=== PATIENT | male | born 1945 | race Caucasian/White ===

== ENCOUNTER 2017-11-29 05:08 | Emergency (ER) | payer MEDICARE ==
[~2017-11-29 05:08] MED LIST: BUPR-149 PO; CEPH-13 PO; HYDR-2966 PO; MELO-207 PO; OMEP-125 PO; OXYC-865 PO
--- NOTE | 2017-11-29 05:10 | ER Report ---
History and Physical Time Seen By MD: 05:09 HPI/ROS CHIEF COMPLAINT: Fever, body aches, cough HISTORY OF PRESENT ILLNESS: 72-year-old male presents ambulatory to the ER complaining of illness for 8 days. Patient has productive cough. He's been having fever and chills for the last 48 hours. He's had some nausea but no vomiting. He notes no diarrhea. Patient denies exposure to ill contacts. Patient relates that he was sick 1 month ago with the flu which had resolved. Patient has a history of hypertension. Patient denies dysuria, frequency or hematuria. Patient denies joint swelling or skin rashes. Patient notes some left lower sharp pleuritic chest pains. Patient notes low-grade fevers to 100.4. Over the last 2 days at home. Patient normally is seen at the [facility] in [place]. REVIEW OF SYSTEMS: Respiratory: As above Cardiovascular: As above Gastrointestinal: No vomiting, no abdominal pain. Musculoskeletal: No back pain. Allergies: Coded Allergies: No Known Drug Allergies (Unverified , 11/29/17) Home Meds Active Scripts Cephalexin 500 Mg Tab (KEFLEX 500 MG TAB) 500 Mg Tablet, 500 MG PO TID for infection, #28 TAB Prov:ANNA MENENDEZ DO 11/29/17 Reported Medications Cholecalciferol (Vitamin D3) (VITAMIN D3) 1,000 Unit Tablet, 1000 UNIT PO, TAB 11/29/17 Hydrochlorothiazide (HYDROCHLOROTHIAZIDE) 25 Mg Tablet, 1 TAB PO QDAY, TAB 11/29/17 Atorvastatin Calcium (LIPITOR) 10 Mg Tablet, 1 TAB PO QDAY, TAB 11/29/17 Lisinopril (LISINOPRIL) 20 Mg Tablet, 20 MG PO QDAY, TAB 11/29/17 Discontinued Reported Medications Omeprazole (OMEPRAZOLE) 20 Mg Capsule.dr, 1 CAP PO QDAY TAKE ONE CAPSULE BY MOUTH ONCE A DAY 02/27/14 Meloxicam (MELOXICAM) 15 Mg Tablet, 15 MG PO QDAY 02/27/14 Hydrochlorothiazide (HYDROCHLOROTHIAZIDE) 25 Mg Tablet, 1 TAB PO QDAY TAKE ONE TABLET BY MOUTH EVERY DAY 02/27/14 Bupropion Hcl (BUPROPION HCL) 100 Mg Tablet, 100 MG PO BID, TAB TAKE 1 TABLET BY MOUTH TWICE A DAY 02/27/14 Discontinued Scripts Oxycodone Hcl/Acetaminophen (PERCOCET 5-325 MG TABLET) 1 Each Tablet, 1 EACH PO Q6H, #20 TAB Prov:VIVIAN WYATT MD 02/27/14 Cephalexin (KEFLEX) 500 Mg Capsule, 500 MG PO Q6H, #40 CAP TAKE ONE CAPSULE BY MOUTH EVERY SIX HOURS Prov:VIVIAN WYATT MD 02/27/14 Past Medical/Surgical History GERD, hypertension, arthritis Reviewed Nurses Notes: Yes Old Medical Records Reviewed: Yes Constitutional Vital Sign - Last 24 Hours 11/29/17 11/29/17 11/29/17 11/29/17 05:12 05:30 05:40 05:50 Temp 98.3 Pulse 70 59 60 ??? Resp 18 12 B/P (MAP) 140/76 127/67 (87) Pulse Ox 97 97 94 O2 Delivery Room Air 11/29/17 11/29/17 11/29/17 11/29/17 06:00 06:10 06:20 06:25 Pulse 59 58 53 Resp 10 22 11 B/P (MAP) 124/73 (90) Pulse Ox 95 93 93 11/29/17 11/29/17 11/29/17 11/29/17 06:30 06:35 06:45 06:55 Pulse 56 54 59 Resp 13 9 13 B/P (MAP) 123/74 (90) Pulse Ox 94 94 94 11/29/17 11/29/17 11/29/17 11/29/17 07:00 07:05 07:15 07:20 Pulse 54 53 Resp 10 19 16 B/P (MAP) 113/71 (85) Pulse Ox 95 96 96 11/29/17 11/29/17 07:25 07:27 Pulse 54 Resp 7 B/P (MAP) 120/71 (87) Pulse Ox 96 Physical Exam Vital signs stable, afebrile, pulse ox normal General Appearance: The patient is alert, has no immediate need for airway protection and no current signs of toxicity. HEENT: Pupils equal and round no injection. TMs normal, oropharynx with moderate erythema, no exudate, no tonsillar hypertrophy Respiratory: Chest is non tender, lungs are clear to auscultation. No wheezing or rails, no chest wall tenderness Cardiac: regular rate and rhythm, no murmur Gastrointestinal: Abdomen is soft and non tender, no masses, bowel sounds normal. Musculoskeletal: Neck: Neck is supple and non tender. No lymphadenopathy, no meningismus Extremities have full range of motion and are non tender. Skin: No rashes or lesions. DIFFERENTIAL DIAGNOSIS: After history and physical exam differential diagnosis was considered for adult fever including but not limited to viral syndromes including influenza, urinary tract infection, pneumonia and sepsis. Medical Decision Making Data Points Result Diagram: 11/29/17 0520 11/29/17 0520 Laboratory Hematology Test 11/29/17 05:20 11/29/17 05:25 11/29/17 05:33 Red Blood Count 5.94 M/uL (4.00-5.60) Mean Corpuscular Volume 85.4 fL (80.0-96.0) Mean Corpuscular Hemoglobin 28.7 pg (26.0-33.0) Mean Corpuscular Hemoglobin Concent 33.6 g/dL (32.0-36.0) Red Cell Distribution Width 13.6 % (11.5-14.5) Mean Platelet Volume 8.4 fL (7.2-11.1) Neutrophils (%) (Auto) 46.9 % (39.4-72.5) Lymphocytes (%) (Auto) 36.6 % (17.6-49.6) Monocytes (%) (Auto) 14.7 % (4.1-12.4) Eosinophils (%) (Auto) 1.1 % (0.4-6.7) Basophils (%) (Auto) 0.7 % (0.3-1.4) Nucleated RBC Relative Count (auto) 0.1 /100WBC Neutrophils # (Auto) 1.5 K/uL (2.0-7.4) Lymphocytes # (Auto) 1.2 K/uL (1.3-3.6) Monocytes # (Auto) 0.5 K/uL (0.3-1.0) Eosinophils # (Auto) 0.0 K/uL (0.0-0.5) Basophils # (Auto) 0.0 K/uL (0.0-0.1) Nucleated RBC Absolute Count (auto) 0.00 K/uL Sodium Level 135 mmol/L (137-145) Potassium Level 3.8 mmol/L (3.5-5.0) Chloride Level 95 mmol/L (98-107) Carbon Dioxide Level 27 mmol/L (22-30) Blood Urea Nitrogen 27 mg/dl (9-21) Creatinine 1.10 mg/dl (0.66-1.25) Glomerular Filtration Rate Calc > 60.0 Random Glucose 96 mg/dl (75-110) Lactate 1.2 mmol/L (0.7-2.1) Calcium Level 10.1 mg/dl (8.4-10.2) Total Bilirubin 0.9 mg/dl (0.2-1.3) Aspartate Amino Transf (AST/SGOT) 42 U/L (0-35) Alanine Aminotransferase (ALT/SGPT) 57 U/L (0-56) Alkaline Phosphatase 77 U/L (0-126) C-Reactive Protein < 0.5 mg/dl (<1.0) Total Protein 7.6 gm/dl (6.3-8.2) Albumin 4.3 g/dl (3.5-5.0) Influenza Virus Type A (PCR) Negative (NEGATIVE) Influenza Virus Type B (PCR) Positive (NEGATIVE) Urine Color Yellow Urine Clarity Clear Urine pH 6.0 pH (4.8-9.5) Urine Specific [place] 1.025 Urine Protein Negative mg/dL (NEGATIVE) Urine Glucose (UA) Negative mg/dL (NEGATIVE) Urine Ketones Negative mg/dL (NEGATIVE) Urine Blood Negative (NEGATIVE) Urine Nitrite Negative (NEGATIVE) Urine Bilirubin Negative (NEGATIVE) Urine Urobilinogen Negative mg/dL (0.2-1.9) Urine Leukocyte Esterase Negative (NEGATIVE) Urine RBC None /HPF (0-2/HPF) Urine WBC None /HPF (0-5/HPF) Urine Squamous Epithelial Cells Few /LPF (</=FEW) Urine Bacteria Negative /HPF (NONE-FEW) Urine Mucus Few /HPF (NONE-FEW) Chemistry Test 11/29/17 05:20 11/29/17 05:25 11/29/17 05:33 White Blood Count 3.2 k/uL (4.5-11.0) Red Blood Count 5.94 M/uL (4.00-5.60) Hemoglobin 17.1 g/dL (14.0-18.0) Hematocrit 50.7 % (42.0-52.0) Mean Corpuscular Volume 85.4 fL (80.0-96.0) Mean Corpuscular Hemoglobin 28.7 pg (26.0-33.0) Mean Corpuscular Hemoglobin Concent 33.6 g/dL (32.0-36.0) Red Cell Distribution Width 13.6 % (11.5-14.5) Platelet Count 163 K/uL (150-450) Mean Platelet Volume 8.4 fL (7.2-11.1) Neutrophils (%) (Auto) 46.9 % (39.4-72.5) Lymphocytes (%) (Auto) 36.6 % (17.6-49.6) Monocytes (%) (Auto) 14.7 % (4.1-12.4) Eosinophils (%) (Auto) 1.1 % (0.4-6.7) Basophils (%) (Auto) 0.7 % (0.3-1.4) Nucleated RBC Relative Count (auto) 0.1 /100WBC Neutrophils # (Auto) 1.5 K/uL (2.0-7.4) Lymphocytes # (Auto) 1.2 K/uL (1.3-3.6) Monocytes # (Auto) 0.5 K/uL (0.3-1.0) Eosinophils # (Auto) 0.0 K/uL (0.0-0.5) Basophils # (Auto) 0.0 K/uL (0.0-0.1) Nucleated RBC Absolute Count (auto) 0.00 K/uL Glomerular Filtration Rate Calc > 60.0 Lactate 1.2 mmol/L (0.7-2.1) Calcium Level 10.1 mg/dl (8.4-10.2) Total Bilirubin 0.9 mg/dl (0.2-1.3) Aspartate Amino Transf (AST/SGOT) 42 U/L (0-35) Alanine Aminotransferase (ALT/SGPT) 57 U/L (0-56) Alkaline Phosphatase 77 U/L (0-126) C-Reactive Protein < 0.5 mg/dl (<1.0) Total Protein 7.6 gm/dl (6.3-8.2) Albumin 4.3 g/dl (3.5-5.0) Influenza Virus Type A (PCR) Negative (NEGATIVE) Influenza Virus Type B (PCR) Positive (NEGATIVE) Urine Color Yellow Urine Clarity Clear Urine pH 6.0 pH (4.8-9.5) Urine Specific [place] 1.025 Urine Protein Negative mg/dL (NEGATIVE) Urine Glucose (UA) Negative mg/dL (NEGATIVE) Urine Ketones Negative mg/dL (NEGATIVE) Urine Blood Negative (NEGATIVE) Urine Nitrite Negative (NEGATIVE) Urine Bilirubin Negative (NEGATIVE) Urine Urobilinogen Negative mg/dL (0.2-1.9) Urine Leukocyte Esterase Negative (NEGATIVE) Urine RBC None /HPF (0-2/HPF) Urine WBC None /HPF (0-5/HPF) Urine Squamous Epithelial Cells Few /LPF (</=FEW) Urine Bacteria Negative /HPF (NONE-FEW) Urine Mucus Few /HPF (NONE-FEW) Urinalysis Test 11/29/17 05:33 Urine Color Yellow Urine Clarity Clear Urine pH 6.0 pH (4.8-9.5) Urine Specific [place] 1.025 Urine Protein Negative mg/dL (NEGATIVE) Urine Glucose (UA) Negative mg/dL (NEGATIVE) Urine Ketones Negative mg/dL (NEGATIVE) Urine Blood Negative (NEGATIVE) Urine Nitrite Negative (NEGATIVE) Urine Bilirubin Negative (NEGATIVE) Urine Urobilinogen Negative mg/dL (0.2-1.9) Urine Leukocyte Esterase Negative (NEGATIVE) Urine RBC None /HPF (0-2/HPF) Urine WBC None /HPF (0-5/HPF) Urine Squamous Epithelial Cells Few /LPF (</=FEW) Urine Bacteria Negative /HPF (NONE-FEW) Urine Mucus Few /HPF (NONE-FEW) Microbiology Microbiology Date/Time Source Procedure Growth Status 11/29/17 06:26 Blood Peripheral Draw Blood Culture - Preliminary NO GROWTH SO FAR, SET LATE. REINCUBATED Resulted 11/29/17 05:30 Blood Peripheral Draw Blood Culture - Preliminary NO GROWTH SO FAR, SET LATE. REINCUBATED Resulted ED Course/Re-evaluation Clinical Indication for ER IV: Hydration, IV Access ED Course Patient was admitted to an examination room. H&P was done. The differential diagnosis was considered. On clinical examination. Patient has fever. He's had a cough for several days. He's been having chills and Reiger. He never goes to the doctor. His was concerned when he reported he wanted to go to the [facility] for evaluation. They came to the emergency room for evaluation. Patient has a productive cough. He's had no dysuria. He's had no rhinitis or sinus drainage. He denies ear pain. His workup shows a low white blood cell count of 3.2. His ANC is still adequate. Patient's chest x-ray shows no infiltrate. Patient be covered with Keflex for any potential bacterial infection. His rapid influenza was positive for flu B. [facility]'s [facility] repeat of his WBC count. Decision to Disposition Date: Nov 29, 2017 Decision to Disposition Time: 06:16 Depart Departure Latest Vital Signs Vital Signs Date Time Temp Pulse Resp B/P (MAP) Pulse Ox O2 Delivery O2 Flow Rate FiO2 11/29/17 07:27 120/71 (87) 11/29/17 07:25 54 7 96 11/29/17 05:12 98.3 Room Air Impression: Primary Impression: Influenza B Additional Impressions: Dehydration Leukopenia Condition: Improved Disposition: HOME OR SELF-CARE New Scripts Cephalexin 500 Mg Tab (KEFLEX 500 MG TAB) 500 Mg Tablet 500 MG PO TID for infection, #28 TAB Prov: ANNA MENENDEZ DO 11/29/17 Patient Instructions: Dehydration (ED), Influenza (ED) Additional Instructions: [facility] You need to have your blood count evaluated. You had leukopenia your white blood cell count was 3200 Your going to be covered with Keflex Problem Qualifiers Additional Impressions: Leukopenia Leukopenia type: unspecified Qualified Codes: D72.819 - Decreased white blood cell count, unspecified ANNA MENENDEZ DO Nov 29, 2017 05:10
[2017-11-29] MEDS ORDERED: NS(*) 0.9% 1000 ML BAG 1,000 ML IV ONE (05:18)
[2017-11-29] MEDS ORDERED: LISI20TA29 PO (05:32)
[2017-11-29] MEDS ORDERED: CHOL10005 PO (05:32)
[2017-11-29] MEDS ORDERED: ATOR10TA24 PO (05:32)
[2017-11-29] MEDS ORDERED: HYDR-2966 PO (05:32)
[2017-11-29 05:37] LABS: PLATELET COUNT, AUTOMATED 163 K/uL (150-450)
[2017-11-29] MEDS ORDERED: CEPH500T7 PO (06:19)
[2017-11-29] MEDS ORDERED: CEPHALEXIN MONO 500 MG CAP PO ONE (06:25)
--- NOTE | 2017-11-29 06:37 | RADIOLOGY IMAGING REPORT ---
FACILITY: [facility] PATIENT NAME: David Rosen : 1945 MR: [id number] V: [id number] EXAM DATE: ORDERING PHYSICIAN: ANNA MENENDEZ TECHNOLOGIST: Location: [facility] [place] Patient: David Rosen : 1945 Visit/Account:[id number] Date of Sevice: 11/29/2017 EXAMINATION: Chest radiographs 2 views HISTORY: Fever. COMPARISON: None. FINDINGS: PA and lateral views of the chest are submitted. Lines/tubes: None. Lungs/pleura: There is slight blunting of the left costophrenic angle. There is no focal consolidati on. Heart: Negative. Mediastinum: Negative. Bony structures/body wall: Fusion hardware in the lower cervical spine. IMPRESSION: 1. Trace left pleural effusion versus pleural thickening. 2. No radiographic evidence of other acute cardiopulmonary disease. Report Dictated By: Roxie Mcdonald MD at 11/29/2017 6:31 AM Report E-Signed By: Roxie Mcdonald MD at 11/29/2017 6:33 AM WSN:[id number]
[2017-11-29 07:27] VITALS: BP 120/71
== END 2017-11-29 07:25 | disposition home or self-care (01) ==
LOC: ER 05:52
DX: J11.1 Influenza due to unidentified influenza virus with other respiratory manifestations (principal); E86.0 Dehydration; D72.819 Decreased white blood cell count, unspecified; I10 Essential (primary) hypertension; K21.9 Gastro-esophageal reflux disease without esophagitis; R07.89 Other chest pain
CPT/HCPCS: 36415; 71046; 81001; 83605; 85025; 86140; 87040; 87502; 99284; A9270; J7030; 82040; 82247; 82310; 82374; 82435; 82565; 82947; 84075; 84132; 84155; 84295; 84450; 84460; 84520; 96360; 96361